=== PATIENT | male | born 1995 | race Caucasian/White ===

== ENCOUNTER 2016-10-30 13:01 | Emergency (ER) | payer MEDICAID, OTHER ==
[~2016-10-30] VITALS: Ht 180.3 cm; Wt 92.0 kg
[2016-10-30 13:02] VITALS: BP 139/70; PULSE 66; RESP 20; TEMP 98.3; O2SAT 98
[2016-10-30] MEDS ORDERED: IBUPROFEN 800 MG TAB PO ONE (13:15)
--- NOTE | 2016-10-30 13:36 | PD ---
HPI Chief Complaint: Injury Time Seen by Provider: 13:36 Travel History International Travel<30 days: No Contact w/Intl Traveler<30days: No Traveled to known affect area: No History of Present Illness HPI 21-year-old male presents to the emergency Department with complaint of left hand and wrist pain after tripping over his own foot and falling forwards last night catching himself with his left hand. He denies hitting his head or loss of consciousness. Denies neck pain or back pain. Denies paresthesias or loss of sensation to the affected extremity. Reports decreased range of motion to the left fourth and fifth digits. Says [facility] and was told to come to the ER for an x-ray. Denies fever or vomiting. Has not taken any medications or tried any treatments to leave a symptoms. No known allergies. Has no other medical complaints. No other modifying factors or associated signs and symptoms. PFSH Social History Tobacco Use: No Allergies-Medications (Allergen,Severity, Reaction): Coded Allergies: No Known Allergies (Unverified , 10/30/16) Reported Meds & Prescriptions Reported Meds & Active Scripts Active Lortab (Hydrocodone-Acetaminophen) 5-325 Mg Tab 1-2 Tab PO Q6H PRN Ibuprofen 800 Mg Tab 800 Mg PO Q6HR PRN Review of Systems Except as stated in HPI: all other systems reviewed are Neg Physical Exam Narrative GENERAL: Well-nourished, well-developed male patient, in no acute distress SKIN: Warm and dry. HEAD: Atraumatic. Normocephalic. EYES: Pupils equal and round. No scleral icterus. No injection or drainage. ENT: Mucosa pink and moist. Airway patent. NECK: Trachea midline. CARDIOVASCULAR: Regular rate. RESPIRATORY: No accessory muscle use. GASTROINTESTINAL: Flat. MUSCULOSKELETAL: Left hand edematous; without erythema; with ecchymosis noted to the palmar aspect over the area of the fourth and fifth metacarpals; no obvious deformities; all fingers with full range of motion at finger joints; all fingers with sensory intact. Left wrist with tenderness on palpation; no erythema ; mild edema; full range of motion. Left upper extremity is supple and non-tense with 3+ radial pulse and sensory intact. No obvious deformities. No clubbing. No cyanosis. NEUROLOGICAL: Awake and alert. Oriented 3. No obvious cranial nerve deficits. Motor grossly within normal limits. Normal speech. PSYCHIATRIC: Appropriate mood and affect; insight and judgment normal. Data Data Last Documented VS Vital Signs Date Time Temp Pulse Resp B/P Pulse Ox O2 Delivery O2 Flow Rate FiO2 10/30/16 14:48 16 10/30/16 13:02 98.3 66 139/70 98 Room Air Orders Ibuprofen (Motrin) (10/30/16 13:15) Hand, Complete (Occ1ouj) (10/30/16 13:15) Wrist, Complete ([id number]) (10/30/16 13:15) Ice/Cold Pack (10/30/16 13:15) Sling Cradle Arm (10/30/16 ) Splint Or Brace Apply/Monitor (10/30/16 14:35) Mandatory Outpatient Referral (10/30/16 14:40) Fiberglass Splint Forearm Adul (10/30/16 ) Sling Cradle Arm (10/30/16 ) MDM Medical Decision Making Medical Screen Exam Complete: Yes Emergency Medical Condition: Yes Medical Record Reviewed: Yes Differential Diagnosis Hand fracture, wrist fracture, wrist sprain, hand sprain Narrative Course 21-year-old male with left hand and wrist injury. Ibuprofen, ice pack, left hand and left wrist x-ray ordered. 1412: Left hand x-ray concludes an oblique fracture of the distal fifth metacarpal meta-physis with volar angulation of the distal fragment (boxer fracture). Call placed to Dr. Delarosa 1435: I spoke with Dr. Mccracken, hand surgeon and he recommended for the patient to be placed in an ulnar gutter splint and follow-up in his office in 1- 2 days. Splint and arm sling ordered. Lortab and ibuprofen prescribed for home. Instructed patient to follow up with hand surgeon in his office in 1-2 days. Mandatory outpatient referral ordered. Patient verbalizes understanding and agreement with treatment plan. Patient is medically cleared and stable for discharge. Discussed reasons to return to the emergency department. Instructed patient to follow up with primary care provider. Patient agrees with treatment plan. The patients vital signs are stable and the patient is stable for outpatient follow-up and treatment. Patient discharged home, stable and in no acute distress. Diagnosis Primary Impression: Closed left hand fracture Qualified Code: S62.92XA - Closed left hand fracture, initial encounter Referrals: Hugo Jon MD [facility] Primary Care Physician Patient Instructions: Boxer Fracture (ED), General Instructions, Hand Fracture (ED) Departure Forms: Tests/Procedures, Work Release Special Instructions: Unable to return to work until cleared by hand surgeon Additional Instructions: Tylenol or ibuprofen as directed and as needed to reduce pain Rest, ice, compress, and elevate extremity to decrease pain and inflammation Splint for support; do not remove the splint until it is cleared by hand doctor Avoid aggravating activity; increase activity as tolerated Follow-up with primary care provider Follow-up with hand surgeon, Dr. Mccracken within 1-2 days; his information is provided in your discharge instructions; call his office and make an appointment for follow-up Return to the emergency department immediately with worsening symptoms Med/Other Pt SpecificInfo: Prescription(s) given Scripts Hydrocodone-Acetaminophen (Lortab)5-325 Mg Tab1-2 Tab PO Q6H PRN (PAIN) #20 TAB Ref 0 Prov:Junito Lemos MD 10/30/16 Ibuprofen 800 Mg [id number] Mg PO Q6HR PRN (PAIN LESS THAN 5 ON SCALE) #30 TAB Ref 0 Prov:Tara Gonzalez 10/30/16 Disposition: 01 DISCHARGE HOME Condition: Stable Tara Gonzalez October 30, 2016 13:36
--- NOTE | 2016-10-30 13:58 | RADRPT ---
EXAM DATE/TIME: 10/30/2016 13:40 [facility] COMPARISON: No previous studies available for comparison. INDICATIONS : Left hand pain, patient states fall last night. MEDICAL HISTORY : None. SURGICAL HISTORY : None. ENCOUNTER: Initial ACUITY: 2 days PAIN SCORE: 8/10 LOCATION: Left hand. FINDINGS: 3 views of the left hand demonstrate an oblique fracture of the distal fifth metacarpal metaphysis wi th volar angulation of the distal fragment. There is adjacent soft tissue swelling. There is mild ass ociated shortening. No other acute finding is identified. CONCLUSION: There is an oblique fracture of the distal fifth metacarpal metaphysis with volar angulation of the d istal fragment (boxer fracture). Jose Arango MD on October 30, 2016 at 13:56 Board Certified Radiologist. This report was verified electronically.
--- NOTE | 2016-10-30 13:59 | RADRPT ---
EXAM DATE/TIME: 10/30/2016 13:41 [facility] COMPARISON: No previous studies available for comparison. INDICATIONS : Left wrist pain, patient states fall last night. MEDICAL HISTORY : None. SURGICAL HISTORY : None. ENCOUNTER: Initial ACUITY: 2 days PAIN SCORE: 4/10 LOCATION: Left wrist. FINDINGS: 3 views of the left wrist demonstrate oblique fracture of the distal fifth metacarpal. Carpal bones d emonstrate no acute finding. No soft tissue abnormality or radiopaque foreign body is identified. CONCLUSION: There is a fracture of the distal fifth metacarpal. No acute wrist injury is identified. Jose Arango MD on October 30, 2016 at 13:57 Board Certified Radiologist. This report was verified electronically.
[2016-10-30] MEDS ORDERED: IBUP800T23 PO (14:38)
[2016-10-30] MEDS ORDERED: HYDR-3533 PO (14:41)
[2016-10-30 14:48] VITALS: RESP 16
== END 2016-10-30 15:14 | disposition home or self-care (01) ==
LOC: NEPK 13:01
DX: S62.367A Nondisplaced fracture of neck of fifth metacarpal bone, left hand, initial encounter for closed fracture (principal); W01.0XXA Fall on same level from slipping, tripping and stumbling without subsequent striking against object, initial encounter; Y93.89 Activity, other specified; Y92.9 Unspecified place or not applicable
CPT/HCPCS: 29125; 73110; 73130